=== PATIENT | male | born 1960 | race Caucasian/White ===

== ENCOUNTER → 2018-01-07 | Outpatient (CLI) | payer OTHER | LOC: BHSO 13:02 | DX: F43.10 Post-traumatic stress disorder, unspecified (principal) ==

== ENCOUNTER → 2018-03-11 | Outpatient (CLI) | payer OTHER ==
[~2018-03-11] MED LIST: LORTAB 5/500 501 TAB PO; MOTRIN800 MG PO
== END ==
LOC: BHSO 13:11
DX: F43.10 Post-traumatic stress disorder, unspecified (principal)
CPT/HCPCS: G0463

== ENCOUNTER → 2018-05-26 | Outpatient (CLI) | payer OTHER | LOC: BHSO 14:08 | DX: F43.10 Post-traumatic stress disorder, unspecified (principal) | CPT/HCPCS: G0463 ==

== ENCOUNTER → 2018-07-27 | Outpatient (CLI) | payer OTHER | LOC: BHSO 08:41 | DX: F43.10 Post-traumatic stress disorder, unspecified (principal) | CPT/HCPCS: G0463 ==

== ENCOUNTER 2023-01-13 13:10 | Emergency (ER) | payer OTHER ==
[~2023-01-13] VITALS: Ht 177.8 cm; Wt 93.6 kg
[2023-01-13 13:30] VITALS: BP 137/76; TEMP 99.7
[2023-01-13] MEDS ORDERED: TAMIFLU 75MG75 MG PO (14:16)
[2023-01-13 14:52] VITALS: PULSE 90
== END 2023-01-13 14:52 | disposition home or self-care (01) ==
LOC: COL.ER 13:10
DX: U07.1 COVID-19 (principal); J10.1 Influenza due to other identified influenza virus with other respiratory manifestations; Z87.891 Personal history of nicotine dependence